=== PATIENT | male | born 1965 | race Caucasian/White ===

== ENCOUNTER → 2024-01-31 13:03 | Outpatient (REF) | payer MEDICARE, MEDICAID, SELFPAY | LOC: HWCARD 13:03 | PROVIDERS: ATTENDING PHYSICIAN Internal Medicine | DX: Z01.818 Encounter for other preprocedural examination (principal) | CPT/HCPCS: 93005 ==

== ENCOUNTER → 2025-02-15 07:58 | Outpatient (REF) | payer MEDICARE, MEDICAID, SELFPAY | LOC: HWCARD 07:58 | PROVIDERS: ATTENDING PHYSICIAN Internal Medicine | DX: Z01.818 Encounter for other preprocedural examination (principal) | CPT/HCPCS: 93005 ==